=== PATIENT | male | born 1995 | race Caucasian/White ===

== ENCOUNTER 2024-09-30 08:38 | Emergency (ER) | payer OTHER, SELFPAY ==
[2024-09-30 08:50] VITALS: BP 128/83; PULSE 94; RESP 20; TEMP 36.3; O2SAT 100
--- NOTE | 2024-09-30 08:56 | ED.EAR ---
HPI - Ear Problem General Chief complaint: Ear Stated complaint: right ear Time Seen by Provider: 09/30/24 08:56 Source: patient Mode of arrival: ambulatory Limitations: no limitations History of Present Illness HPI Narrative: 29-year-old male presented for complaint of right ear pain and pressure for 3 days. States symptoms [place]. He then had several flights the next day which cause severe pain radiating to right neck, and could not adjust to the change in air pressure. Has taken otc ear drops without much improvement. denies tinnitus, dizziness, ear drainage, nausea, vomiting, fevers or chills Complaint: ear pain Related Data Home Medications ?Medication ?Instructions ?Recorded ?Confirmed ?Last Taken ?Type dextroamphetamine-amphetamine .ROUTE 09/30/24 Unknown History Allergies Allergy/AdvReac Type Severity Reaction Status Date / Time No Known Allergies Allergy Mild Verified 09/30/24 08:58 Review of Systems Review of Systems: CONSTITUTIONAL: Denies malaise, chills, or fever. EYES: Denies visual changes, redness, or discharge. ENT: Denies rhinorrhea, congestion, sinus pain, and sore throat. Reports ear pain CARDIOVASCULAR: Denies chest pain, palpitations, or edema. RESPIRATORY: Denies cough or dyspnea. GASTROINTESTINAL: Denies abdominal pain, nausea, vomiting, diarrhea SKIN: Denies rash or itching. MUSCULOSKELETAL: Denies myalgia. NEUROLOGIC: Denies headache. All systems reviewed & are unremarkable except as noted in HPI and below PMFSH Comments At time of signature, agree with nursing past medical, surgical, social and family history. There is no relevant family history pertinent to the presenting complaint Exam Narrative: GENERAL: Well-appearing, well-nourished, and in no acute distress. HEAD: Normocephalic EYES: PERRLA, conjunctivae clear ENT: Nares clear. Mucous membranes moist. left TM pearly pickens with dull light reflex; right TM erythematous, bulging and intact with large effusion; canal not erythematous, no drainage no tragal tenderness. Oropharynx not erythematous without lesions. Tonsils not enlarged and without exudate, no drooling, no hoarseness, no trismus, uvula midline. NECK: Supple. No lymphadenopathy CHEST: Clear to auscultation, breath sounds equal. HEART: Regular rate and rhythm. NEURO: Alert and oriented x3. PSYCH: Normal mood and affect Course Course Emergency Course: Patient is aware of diagnosis, understands and agrees to treatment plan. Anticipatory guidance given. Patient agrees to follow-up as directed and is aware of reasons to seek care at the emergency department. Portions of this record may have been created with voice recognition software Level of Care: Express Care Visit Vital Signs Vital signs: Vital Signs Temperature 97.3 F L 09/30/24 08:50 Pulse Rate 94 09/30/24 08:50 Respiratory Rate 20 09/30/24 08:50 Blood Pressure 128/83 09/30/24 08:50 Pulse Oximetry 100 09/30/24 08:50 Oxygen Delivery Room Air 09/30/24 08:50 Temperature 97.3 F L 09/30/24 08:50 Pulse Rate 94 09/30/24 08:50 Respiratory Rate 20 09/30/24 08:50 Blood Pressure 128/83 09/30/24 08:50 Pulse Oximetry 100 09/30/24 08:50 Oxygen Delivery Room Air 09/30/24 08:50 Reviewed Medical Decision Making MDM Narrative Medical decision making narrative: discussed physical exam findings consistent with right AOM. Advised supportive measures and signs/symptoms to go to the ER. Patient is appropriate for outpatient treatment and follow-up. Differential Diagnosis Differential Diagnosis: Coronavirus, strep pharyngitis, allergic rhinitis, upper respiratory tract infection, sinusitis, rhinosinusitis, nasopharyngitis, viral pharyngitis, otitis media, otitis externa, eustachian tube dysfunction, foreign body, cerumen impaction. Vital Signs Vital Signs: Vital Signs Temperature 97.3 F L 09/30/24 08:50 Pulse Rate 94 09/30/24 08:50 Respiratory Rate 20 09/30/24 08:50 Blood Pressure 128/83 09/30/24 08:50 Pulse Oximetry 100 09/30/24 08:50 Oxygen Delivery Room Air 09/30/24 08:50 Temperature 97.3 F L 09/30/24 08:50 Pulse Rate 94 09/30/24 08:50 Respiratory Rate 20 09/30/24 08:50 Blood Pressure 128/83 09/30/24 08:50 Pulse Oximetry 100 09/30/24 08:50 Oxygen Delivery Room Air 09/30/24 08:50 Discharge Plan Discharge Clinical Impression: Otitis media Patient Disposition: Home, Self-Care Condition: Stable Instructions: Antibiotic Form, Ear Infection (ED) Additional Instructions: Take antibiotics as directed. Recommend antihistamine such as Benadryl, Zyrtec or Divya for sinus congestion Flonase nasal spray, 1 spray in each nostril once daily until symptoms improve Symptomatic treatment includes: rest, fluids, and increase humidity of the air at home. Tylenol 1000mg every 8 hours as needed to reduce fever, pain Please schedule a follow-up visit with your personal physician If your symptoms persist, change or worsen significantly, go to the emergency department for further evaluation. Patient Language: Georgian Prescriptions: New amoxicillin-pot clavulanate 875-125 mg tablet 1 tablet PO Q12H 7 Days Qty: 14 0RF No Action dextroamphetamine-amphetamine [Adderall] .ROUTE Follow-up/Referrals: PHYSICIAN NOT ON STAFF,NONSTAFF [Primary Care Provider] - Time of Disposition: 09:01
== END 2024-09-30 09:05 | disposition home or self-care (01) ==
PROVIDERS: Emergency Provider Nurse Practitioner Family
DX: H66.91 Otitis media, unspecified, right ear (principal)
CPT/HCPCS: 99203; G0463